=== PATIENT | female | born 2000 | race Caucasian/White ===

== ENCOUNTER 2023-01-10 01:39 | Emergency (ER) | payer OTHER ==
[~2023-01-10] VITALS: Ht 157.5 cm; Wt 54.4 kg
--- NOTE | 2023-01-10 03:15 | NUR ---
JJ 89 FROM HOME FOR ETOH DRANK VODKA. PT A/OX3; INTOXICATED. TOLERATING R/A WELL WITH NO RESP DISTRESS. CONNECTED PT TO POX AND MONITOR. SAFETY MEASURES IN PLACE.
--- NOTE | 2023-01-10 03:39 | NUR ---
SHARAD 164; DR LYNCH DO AWARE
--- NOTE | 2023-01-10 05:01 | NUR ---
jose acuna [phone]
--- NOTE | 2023-01-10 06:58 | NUR ---
Updated momjose [phone]
[2023-01-10] MEDS ORDERED: ONDANSETRON HCL/PF 4 MG/2 ML VIAL IM ONE (07:00)
[2023-01-10] MEDS ORDERED: ONDANSETRON HCL/PF 4 MG/2 ML VIAL ONE (07:00)
--- NOTE | 2023-01-10 07:06 | NUR ---
[facility] [employer] [facility] PT FOR D/C. ETA [id number]
--- NOTE | 2023-01-10 09:32 | NUR ---
Patient discharged to home in stable condition. Written and verbal after care instructions given. Patient verbalizes understanding of instruction.
[2023-01-10 09:33] VITALS: BP 116/90
== END 2023-01-10 09:33 | disposition home or self-care (01) ==
LOC: ER 01:48
DX: F10.129 Alcohol abuse with intoxication, unspecified (principal); Y90.9 Presence of alcohol in blood, level not specified
CPT/HCPCS: 99283; 96372; 82962; J2405